=== PATIENT | female | born 1960 | race African-American/Black ===

== ENCOUNTER 2020-11-29 19:30 | Emergency (ER) | payer BC, OTHER ==
[2020-11-29 19:43] VITALS: TEMP 98.1; BMI 28.6
[2020-11-29] MEDS ORDERED: KETOROLAC TROMETHAMINE 30 MG/1 ML VIAL IM ONE (20:55)
[2020-11-29] MEDS ORDERED: KETOROLAC TROMETHAMINE 30 MG/1 ML VIAL ONE (21:03)
[2020-11-29 22:58] VITALS: BP 137/86; PULSE 63
== END 2020-11-29 23:35 | disposition home or self-care (01) ==
LOC: JER 19:30
PROC: 3E0233Z Introduction of Anti-inflammatory into Muscle, Percutaneous Approach (ICD-10-PCS; principal; 2020-11-29)
DX: R07.9 Chest pain, unspecified (principal); M54.5 Low back pain
CPT/HCPCS: 71046-TC-FY; 93005; 93010; 99285-25